=== PATIENT | male | born 1940 | race Caucasian/White ===

== ENCOUNTER 2022-05-20 13:25 | Emergency (ER) | payer OTHER ==
[~2022-05-20] VITALS: Ht 165.1 cm; Wt 68.0 kg
[2022-05-20 13:33] VITALS: BP 149/76
--- NOTE | 2022-05-20 13:38 | NUR ---
PT MOVED FROM STRETCHER TO CHAIR A BY EMS.
--- NOTE | 2022-05-20 13:39 | NUR ---
75/M WALKED IN C/O LEFT KNEE AND LEFT ARM PAIN S/P FALL WITNESSED BY BYSTANDER. PT DOES NOT KNOW HIS ADDRESS OR A CONTACT NUMBER FOR FAMILY. EMS DENIES HEAD TRAUMA OR LOC. [facility]. [facility]H: DENIES [facility]
--- NOTE | 2022-05-20 13:50 | NUR ---
[facility] ENGINEER ATTEMPTED TO BRING PT BACK FOR CT, PT REFUSED. DR ARAUZ AWARE
--- NOTE | 2022-05-20 15:27 | NUR ---
PT REFUSING CT AGAIN, DR PAT AWARE.
--- NOTE | 2022-05-20 15:38 | NUR ---
CONTACTED [place] [facility] FOR ASSISTANCE WITH HOME ADDRESS THEY WERE ON SCENE, STATED THAT THEY WERE ONLY CALLED FOR ASSISTANCE BUT SINCE [facility] TRANSPORTED PT, THEY ARE NO LONGER INVOLVED. WITHOUT , UNABLE TO LOCATE ADDRESS. DR PAT AWARE
--- NOTE | 2022-05-20 16:51 | NUR ---
RECEIVED CALL FROM OFFICER YECENIA WITH [facility], STATED HE IS WITH PTS DAUGHTER NASH WHO REPORTED HIM MISSING. STATED NASH IS ON HER WAY. DR PAT AWARE.
--- NOTE | 2022-05-20 17:20 | NUR ---
DAUGHTER ARRIVED IN ED, TALKING TO DR PAT AT THIS TIME
[2022-05-20 17:42] VITALS: BP 138/85
--- NOTE | 2022-05-20 17:42 | NUR ---
Patient discharged with v/s stable. Written and verbal after care instructions given and explained. Patient verbalized understanding. Ambulatory with steady gait. All questions addressed prior to discharge. Advised to follow up with PMD, ACCOMPANIED BY DAUGHTER
== END 2022-05-20 17:42 | disposition home or self-care (01) ==
LOC: EDBD 13:25 → MED 13:25
DX: S80.212A Abrasion, left knee, initial encounter (principal); F03.90 Unspecified dementia, unspecified severity, without behavioral disturbance, psychotic disturbance, mood disturbance, and anxiety; W18.30XA Fall on same level, unspecified, initial encounter; Y93.89 Activity, other specified; Y92.89 Other specified places as the place of occurrence of the external cause; Y99.8 Other external cause status
CPT/HCPCS: 90471; 90715; 99283